=== PATIENT | male | born 1970 | race Caucasian/White ===

== ENCOUNTER 2023-10-15 10:09 | Emergency (ER) | payer BC, SELFPAY ==
[2023-10-15] VITALS (13 sets, daily range): BP systolic 109–158; BP diastolic 55–88; PULSE 60–81; TEMP 36.8; O2SAT 86–100; BMI 33.0
--- NOTE | 2023-10-15 10:27 | ED.BACK1 ---
HPI HPI - Back Pain/Injury General Chief Complaint: Back Pain/Injury Stated Complaint: BACK PAIN Time Seen by Provider: 10/15/23 10:22 Source: patient Mode of arrival: ambulance Limitations: no limitations History of Present Illness HPI Narrative: Patient here by squad for evaluation of back pain. 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 It is just off the midline in the right paralumbar are low lumbar area. He has not had back surgery previously he has not had bowel or bladder incontinence. He does not have tingling numbness paresthesias or radiation of pain in the buttock the groin or the extremity at all edges is confined right into the lumbar area. He has not seen any blood in his stool. He has not seen any blood in his urine. He has not been running a fever. He is otherwise in good health. He has not had MRI or CT imaging of the back before. He is never miss work because of back problems. He took some home muscle relaxants last night. He was given fentanyl intravenously before arrival here. Related Data Home Medications ?Medication ?Instructions ?Recorded ?Confirmed atorvastatin 20 mg tablet 20 mg PO QDAY 10/15/23 10/15/23 diltiazem HCl 240 mg capsule,24 240 mg PO Q24H 10/15/23 10/15/23 hr,extended release (Tiadylt ER) losartan 100 1 tab PO QDAY 10/15/23 10/15/23 mg-hydrochlorothiazide 25 mg tablet Allergies Allergy/AdvReac Type Severity Reaction Status Date / Time No Known Drug Allergies Allergy Verified 10/15/23 10:16 Opioid HPI Opioid Management Most Recent Opioid Data: Last Pain Scale 5 10/15/23 12:27 Last MAR Pain Assessment 10/15/23 12:27 Exam Narrative Exam Narrative: Patient is lying on his back. Knees are drawn up. He appears uncomfortable. He does not appear septic toxic or acutely ill just uncomfortable. He is getting a lot of muscular spasm. Examining lower extremities his deep tendon reflexes at patella are strong and equal bilaterally. Achilles is strong and equal bilaterally in the extensor houses longus strength in both toes is excellent. There is no sensory neuropathy or symptomatology or paresthesias. On his side he does not show any evidence of gross kyphoscoliosis bruising ecchymosis or overlying skin infection or cellulitis. There is no evidence of shingles. He does not have any respiratory distress. Does not have any abdominal pain to palpation of the belly. No tenderness to McBurney's point Vann sign is negative. Constitutional Vital Signs, click to edit/add: Last Vital Signs Temp 98.3 F 10/15/23 10:17 Pulse 78 10/15/23 12:25 Resp 18 10/15/23 12:25 BP 121/81 10/15/23 12:25 Pulse Ox 96 10/15/23 12:25 O2 Del Method Room Air 10/15/23 12:25 Course Vital Signs Vital signs: Vital Signs Temperature 98.3 F 10/15/23 10:17 Pulse Rate 81 10/15/23 10:17 Respiratory Rate 16 10/15/23 10:17 Blood Pressure 158/88 H 10/15/23 10:17 Pulse Oximetry 100 10/15/23 10:17 Oxygen Delivery Method Room Air 10/15/23 10:17 Temperature 98.3 F 10/15/23 10:17 Pulse Rate 78 10/15/23 12:25 Respiratory Rate 18 10/15/23 12:25 Blood Pressure 121/81 10/15/23 12:25 Pulse Oximetry 96 10/15/23 12:25 Oxygen Delivery Method Room Air 10/15/23 12:25 MDM - Back Pain/Injury MDM Narrative Medical decision making narrative: Patient presents with abrupt onset of sharp paralumbar pain that is made worse with movement. The urinalysis does not show any indication of infection or blood or other abnormalities. Plain films are consistent with mild degenerative changes. He was treated clinically and has had some improvement. I do not see any emergency condition at this time. This all appears to be acute myofascial sprain. Treatment recommendations will be discussed Lab Data Labs: Lab Results 10/15/23 Range/Units 11:20 Urine Color Lt. yellow (YELLOW) Urine Clarity Clear (CLEAR) Urine pH 8.5 (5.0-9.0) Ur Specific [place] 1.015 (1.005-1.025) Urine Protein Negative (NEG/TRACE) mg/dL Urine Glucose (UA) Negative (NEGATIVE) mg/dL Urine Ketones Negative (NEGATIVE) mg/dL Urine Occult Blood Negative (NEGATIVE) Urine Nitrite Negative (NEGATIVE) Urine Bilirubin Negative (NEGATIVE) Urine Urobilinogen 0.2 (0.2-1.0) EU/dL Ur Leukocyte Esterase Negative (NEGATIVE) Discharge Plan Discharge Stand Alone Forms: Portal Instructions Chief Complaint: Back Pain/Injury Clinical Impression: Strain of lumbar region Patient Disposition: Home, Self-Care Time of Disposition Decision: 13:00 Prescriptions / Home Meds: No Action atorvastatin 20 mg tablet 20 mg PO QDAY diltiazem HCl [Tiadylt ER] 240 mg capsule,extended release 24 hr 240 mg PO Q24H losartan-hydrochlorothiazide 100-25 mg tablet 1 tab PO QDAY Print Language: Slovenian Additional Instructions: Alternate ice and heat/[place]/Robaxin/Anaprox Referrals: JANEEN PAZ [Primary Care Provider] - 1 week
--- NOTE | 2023-10-15 10:30 | XR_ITS ---
The [address] [address] Patient Name: ELANA MENDEZ MRN: [id number] date: 1970 Sex: M Assigned Patient Location: ED.MAIN Current Patient Location: ED.MAIN Accession/Order Number: [id number] Exam Date: 10/15/2023 10:43 Report Date: 10/15/2023 12:36 At the request of: JUAN MARTINEZ Procedure: XR lumbar spine 2-3V EXAMINATION: XR lumbar spine 2-3V HISTORY: Pain ; acute low back pain after bending over COMPARISON: XR L-spine 02/10/2022 FINDINGS: BONES: Mild left convex curvature of lumbar spine. No fracture, spondylolisthesis, bone lesion. Mild degenerative facet arthropathy. DISC SPACES: Moderate narrowing L5-S1. PARASPINOUS: Negative. No paraspinous abnormality is seen. OTHER: Negative. XR/XR lumbar spine 2-3V IMPRESSION: 1. L5-S1 moderate degenerative disc disease; not significantly changed. Electronically authenticated by: LAURO GRAVES Date: 10/15/2023 12:36
[2023-10-15] MEDS: LORAZEPAM 2 MG/ML VIAL 1 MG IV (10:56)
[2023-10-15 11:34] LABS: Bilirubin Urine NEGATIVE (NEGATIVE); Blood Urine NEGATIVE (NEGATIVE); Clarity Urine CLEAR (CLEAR); Color Urine LT. YELLOW (YELLOW); Glucose Urine UA NEGATIVE (NEGATIVE); Ketones Urine NEGATIVE (NEGATIVE); Leukocyte Esterase Urine NEGATIVE (NEGATIVE); Nitrite Urine NEGATIVE (NEGATIVE); Protein Urine NEGATIVE (NEG/TRACE); Specific Gravity Urine 1.015 (1.005-1.025); Urine Microscopic Indicated NO; Urobilinogen Urine 0.2 EU/dL (0.2-1.0); pH Urine 8.5 (5.0-9.0)
[2023-10-15] MEDS: KETOROLAC TROMETHAMINE 30 MG/ML VIAL IVP (12:27)
[2023-10-15] MEDS: HYDROMORPHONE HCL 1 MG/ML CARTRIDGE IV (13:07)
--- NOTE | 2023-10-15 13:36 | CT_ITS ---
The [address] [address] Patient Name: ELANA MENDEZ MRN: [id number] date: 1970 Sex: M Assigned Patient Location: ER Current Patient Location: ER Accession/Order Number: [id number] Exam Date: 10/15/2023 13:56 Report Date: 10/15/2023 14:20 At the request of: JUAN MARTINEZ Procedure: CT abdomen pelvis wo con EXAM: CT scan of the abdomen and pelvis without contrast. Dose reduction technique used: Automated exposure control and/or adjustment of the mA and/or kV according to patient size and/or use of iterative reconstruction technique. 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 Small hepatic cyst. No renal, ureteral or bladder calculi. No hydronephrosis. Normal appendix. No free fluid in the abdomen or pelvis. No free intraperitoneal air. No dilated or thickened loops of small bowel or colon. Liver, pancreas, spleen, bilateral kidneys, and bilateral adrenal glands are otherwise unremarkable within the limitations of noncontrast CT. No lymphadenopathy in the abdomen or pelvis. Remainder unremarkable. CT/CT abdomen pelvis wo con IMPRESSION: No acute abnormalities in the abdomen or pelvis. Electronically authenticated by: THIAGO SUAREZ Date: 10/15/2023 14:20
[2023-10-15] MEDS: 0.9 % SODIUM CHLORIDE 1,000 ML 1000 ML IV (13:39)
--- NOTE | 2023-10-15 14:40 | PC.NURSE ---
Pt able to ambulate in the [place]. Pt stood himself from bed and able to bear weight with minimal discomfort. Pt ambulated approximately 20 ft in [place] and back to room and back to bed. Pt stated that he feels a little dizzy, VSS and checked upon back to bed. Status relayed to
== END 2023-10-15 15:00 | disposition home or self-care (01) ==
PROVIDERS: Emergency Provider Emergency Medicine Emergency Medical Services; PCP Internal Medicine
DX: S39.012A Strain of muscle, fascia and tendon of lower back, initial encounter (principal); X50.9XXA Other and unspecified overexertion or strenuous movements or postures, initial encounter
CPT/HCPCS: 72100; 74176; 81003; 96374; 96375; 99285; J1170; J1885; J2060